=== PATIENT | male | born 1980 | race Caucasian/White ===

== ENCOUNTER 2016-11-02 08:04 | Observation (INO) ==
[2016-11-02] MEDS ORDERED: Ketorolac 60 MG/2 ML VIAL IM ONE (08:27)
--- NOTE | 2016-11-02 08:32 | Emergency Department Note ---
Disposition Clinical Impression: Leg pain, bilateral Disposition: Admitted As Inpatient Condition: Fair Time of Disposition: 09:41 Extremity Problem HPI - General Chief complaint: ED Extremity Problem,Nontraumatic Stated complaint: bilat leg pain Time Seen by Provider: 11/02/16 08:11 Source: patient Mode of arrival: ambulatory Limitations: no limitations Nursing Notes Reviewed: Yes Vital Signs Reviewed: Yes - History of Present Illness HPI Narrative: Patient presents to the emergency Department complaining of atraumatic bilateral leg pain. The pain extends from his bilateral hips distally. He notes pain mostly in his bilateral knees and left ankle. No back pain. No fevers. No radicular symptoms. Pain is worse with ambulation and certain positions. He admits to a remote history of IV drug use-last use 4 months ago. He has not taken any analgesics for this other than 3 Vicodin last month which was ineffective. He states he also took some leftover Neurontin which was ineffective. No other acutely swollen joints Pt Subjective Complaint: extremity pain Onset (ago): month(s) Consistency: constant Injury Location: lower extremity Pain Scale: 10 Quality: aching Improves with: other (Position) Worsens with: nothing Associated symptoms: Reports: denies other symptoms - Related Data Home Medications Medication Instructions Recorded Confirmed No Known Home Drugs 11/02/16 11/02/16 Allergies Allergy/AdvReac Type Severity Reaction Status Date / Time No Known Allergies Allergy Verified 11/02/16 09:24 All systems ED: reviewed and negative except as stated. Constitutional: Reports: as per HPI Eyes: Reports: as per HPI ENT ED: Reports: as per HPI Cardiovascular: Reports: as per HPI Respiratory: Reports: as per HPI Gastrointestinal: Reports: as per HPI Genitourinary: Reports: as per HPI Musculoskeletal: Reports: other (Bilateral lower extremity pain) Integumentary: Reports: as per HPI Neurological: Reports: as per HPI Psychiatric: Reports: as per HPI Endocrine: Reports: as per HPI Hematological/Lymphatic: Reports: as per HPI Allergic/Immunologic: Reports: as per HPI Past Medical History - Past Medical History Source: patient Medical history: Reports: no medical history Psychiatric history: Reports: no psych history - Social History Smoking Status: Never smoker Smokeless Tobacco Status: No Alcohol use: Reports: none Drug use: Reports: opiates, other Physical Exam Patient lying supine at the time of my exam. Appears uncomfortable. He was able to ambulate to the treatment area with a painful gait - General Limitations: no limitations General appearance: alert, anxious - Head Head exam: atraumatic - Eye Eye exam: Present: normal appearance - ENT ENT exam: normal exam - Neck Neck exam: Present: normal inspection - Chest Chest inspection: Present: normal inspection, symmetric chest wall rise - Respiratory Respiratory exam: Present: normal lung sounds bilaterally. Absent: respiratory distress - Cardiovascular Cardiovascular exam: Present: regular rate, normal rhythm, normal heart sounds - Abdominal Exam Abdominal exam: Present: soft, Non-Tender. Absent: tenderness - Rectal Exam Rectal exam: Present: deferred - Extremities Exam Extremities exam: Present: normal inspection, full ROM (With subjective pain when he bends at his hips, knees, ankles), tenderness (Diffuse tenderness with palpation of his knees and ankles.), other (No increased tactile warmth, no acutely swollen joints. Range of motion preserved but with discomfort). Absent : pedal edema, joint swelling - Expanded Lower Extremity Exam Hip/Pelvis exam: Present: normal inspection Knee exam: Present: normal inspection Lower leg exam: Present: normal inspection Ankle exam: Present: normal inspection Foot/toe exam: Present: normal inspection Neurovascular/Tendon exam: Absent: pulse deficit, motor deficit, sensory deficit Gait: observed and limited by pain - Back Exam Back exam: Present: normal inspection, full ROM. Absent: tenderness - Neurological Exam Neurological exam: Present: alert, oriented X3, CN II-XII intact - Psychiatric Psychiatric exam: Present: anxious - Skin Skin exam: Present: warm, dry, intact Course Course Narrative: Patient presents to emergency department with bilateral atraumatic lower extremity pain. No back pain or fevers. No SIRS criteria per his triage vital signs. I do not see evidence of any acutely inflamed joints. However, because of his subacute history of IV drug use-last use 4 months ago, I we will check labs with attention to CBC, ESR, CRP. I offered [id number] analgesics and reassessed - Reevaluation(s) Reevaluation #1: Patient resting comfortable at time of reevaluation. I am concerned given the patient's history of IV drug use. His CRP and ESR are both elevated. The patient could be bacteremic. He could have septic arthritis. I have requested admission to medicine service. I will withhold antibiotic therapy pending cultures. accepts Reevaluation #2: Family and elevated bedside. Additional history is obtained and the patient now admits to using IV heroin daily. He was hesitant to be admitted but now agrees to stay Vital Signs Temperature 98.5 F 11/02/16 08:07 Pulse Rate 61 11/02/16 08:07 Respiratory Rate 16 11/02/16 08:07 Blood Pressure 150/93 11/02/16 08:07 O2 Sat by Pulse Oximetry 98 11/02/16 08:07 Temperature 98.5 F 11/02/16 08:07 Pulse Rate 68 11/02/16 08:27 Respiratory Rate 20 11/02/16 08:27 Blood Pressure 137/82 11/02/16 08:27 O2 Sat by Pulse Oximetry 98 11/02/16 08:27 Oxygen Delivery Oxygen Delivery Room Air Extremity Problem, Nontraumati - Lab Data Lab results reviewed: Yes I reviewed the patient's lab results. Result diagrams: 11/02/16 08:47 11/02/16 08:47 Lab Results 11/02/16 11/02/16 11/02/16 Range/Units 08:47 08:47 08:47 WBC 4.1 L (4.3-11.1) K/mcL RBC 4.65 (4.19-5.50) M/mcL Hgb 11.7 L (12.9-16.9) g/dL Hct 37.1 L (37.5-50.1) % MCV 79.8 L (83.0-100.0) fL MCH 25.2 L (28.0-33.3) pg MCHC 31.5 L (31.6-35.5) g/dL RDW 14.8 H (11.5-14.5) % Plt Count 173 (140-400) K/mcL MPV 10.2 (9.4-12.4) fL Immature Gran % 0.2 (0-4) % Seg Neutrophils % 62.4 % Lymphocytes % 22.9 % Monocytes % 10.6 % Eosinophils % 3.4 % Basophils % 0.5 % Neutrophils # 2.5 (1.6-8.9) K/mcL Lymphocytes # 0.9 (0.6-4.6) K/mcL Monocytes # 0.4 (0.0-1.3) K/mcL Eosinophils # 0.1 (0.0-0.6) K/mcL Basophils # 0.0 (0.0-0.2) K/mcL ESR 92 H (0-10) mm/hr Sodium 136 (136-145) mEq/L Potassium 3.4 L (3.5-4.5) mEq/L Chloride 101 (98-109) mEq/L Carbon Dioxide 28 (19-29) mEq/L BUN 13 (8-26) mg/dL Creatinine 0.90 (0.72-1.25) mg/dL Est GFR ( Amer) > 60 (> 60) Est GFR (Non-Af Amer) > 60 (> 60) BUN/Creatinine Ratio 14 (6-26) Glucose 118 H (70-99) mg/dL Calculated Osmolality 283 (280-300) Calcium 8.6 (8.6-10.8) mg/dL C-Reactive Protein 80 H (Less than 5) mg/L
[2016-11-02 08:54] LABS: Basophils % 0.5 %; Eosinophils # 0.1 K/mcL (0.0-0.6); Eosinophils % 3.4 %; Hematocrit 37.1 % (37.5-50.1); Hemoglobin 11.7 g/dL (12.9-16.9); Immature Granulocytes % 0.2 % (0-4); Lymphocytes # 0.9 K/mcL (0.6-4.6); Lymphocytes % 22.9 %; Mean Corpuscular HGB Conc 31.5 g/dL (31.6-35.5); Mean Corpuscular Hemoglobin 25.2 pg (28.0-33.3); Mean Corpuscular Volume 79.8 fL (83.0-100.0); Mean Platelet Volume 10.2 fL (9.4-12.4); Monocytes # 0.4 K/mcL (0.0-1.3); Monocytes % 10.6 %; Neutrophils # 2.5 K/mcL (1.6-8.9); Platelet Count 173 K/mcL (140-400); Red Blood Count 4.65 M/mcL (4.19-5.50); Red Cell Distribution Width 14.8 % (11.5-14.5); Segmented Neutrophils % 62.4 %
[2016-11-02 09:05] LABS: BUN/Creatinine Ratio 14 (6-26); Blood Urea Nitrogen 13 mg/dL (8-26); Calcium 8.6 mg/dL (8.6-10.8); Carbon Dioxide 28 mEq/L (19-29); Chloride 101 mEq/L (98-109); Glucose 118 mg/dL (70-99); Osmolality,Calculated 283 (280-300); Potassium 3.4 mEq/L (3.5-4.5); Sodium 136 mEq/L (136-145); eGFR For African Americans > 60 (> 60); eGFR For Non-African Americans > 60 (> 60)
[2016-11-02 09:21] LABS: C-Reactive Protein 80 mg/L (Less than 5)
[2016-11-02] MEDS ORDERED: Naloxone 0.4 MG/ML INJ IVP PRN (10:03)
[2016-11-02] MEDS ORDERED: Acetaminophen 325 MG TABLET PO PRN (10:03)
[2016-11-02] MEDS ORDERED: Ondansetron 4 MG/2 ML VIAL IVP PRN (10:03)
[2016-11-02] MEDS ORDERED: Ketorolac 30 MG/ML VIAL IVP PRN ×2 (10:03→20:30)
--- NOTE | 2016-11-02 10:18 | Internal Med History&Physical ---
Date of Encounter: 11/02/16 Time of Encounter: 09:30 Assessment and Plan (1) Leg pain, bilateral Current visit: Yes Status: Acute Etiology is undetermined. On exam, patient has no joint swelling, redness. ROM wnl. - We will place CT legs, US legs to rule out arthritis or DVT. - No signs of infection so far. - We will give him pain medication. Avoid opioid considering patient has a history of IV drug use. - We will check JO and RF considering patient has elevated ESR and recent body weight loss. - We will check urine gonorrhea DNA (2) Hx of intravenous drug use, in remission Current visit: Yes Status: Acute Patient has history of IV drug use. Per patient, last use of heroin was a couple months ago. Patient was on suboxone previously but stopped now. - We will place social work consult. May need detox referral upon discharge. - Valium by mouth for anxiety and to prevent withdrawal. (3) DVT prophylaxis Current visit: Yes Status: Acute Heparin subcutaneously (4) Hypokalemia Current visit: Yes Status: Acute Will give potassium supplement. Internal Medicine - H&P: HPI Chief complaint: Leg pain bilaterally Admitted From: Home Plans for Post Hospital Care: Home History of present illness: Mr. Bullock is a 36 year old male with history of IV drug abuse of heroin presents to the emergency room for bilateral leg pain for 3 days. Patient denies any trauma or injury. Pain is a sharp, located both knees and ankles. Pain is 10 out of 10, constant. Patient denies fever. As per ER physician, patient walked in to the emergency room. Patient complaint of mild nausea. He said he lost 30 Lb over last 5 months, denies night sweating. In ER he was found elevated ESR and CRP, he was admitted to r/o bacteria, or other inflammatory conditions. I have discussed with CODE STATUS with patient. He is full code. Past Med Surg Social Fam HX - Past Medical History Medical history: no medical history Psychiatric history: no psych history - Social History Smoking Status: Never smoker Smokeless Tobacco Status: No Alcohol use: none Drug use: opiates, other Internal Medicine - H&P: Meds No Known Home Drugs 11/02/16 [History] No Known Allergies Allergy (Verified 11/02/16 09:24) All Systems PM: A 10-system review of systems was performed and is negative for pertinent findings except as documented above in the HPI. - Constitutional Vitals: Temp Pulse Resp BP Pulse Ox 98.5 F 68 20 137/82 98 11/02/16 08:07 11/02/16 08:27 11/02/16 08:27 11/02/16 08:27 11/02/16 08:27 General appearance: Present: A&O X 3, severe distress, answers questions appropriately - Head Head exam: Present: atraumatic, normocephalic - Eye Eye exam: Present: PERRL, conjuntiva pink, sclera anicteric Pupils: Present: PERRL - Neck Neck exam general surgery: Present: supple, trachea midline. Absent: lymphadenopathy - Respiratory Respiratory exam: Present: CTAB. Absent: accessory muscle use, rales, rhonchi, wheezes - Cardiovascular Cardiovascular exam: Present: RRR, +S1, +S2. Absent: diastolic murmur, gallop, rubs, systolic murmur - GI/Abdominal GI/Abdominal exam: Present: normal bowel sounds, soft, no peritoneal signs. Absent: distended, tenderness - Extremities Exam Extremities exam: Present: tenderness (Tenderness all over legs bilaterally), warm, radial pulses palpable and symmetrical. Absent: calf tenderness, cyanotic , pedal edema - Neurological Exam Neurological exam: Present: CN II-XII intact, oriented X3, no focal deficits. Absent: pronater drift, facial droop, speech deficit - Skin Skin exam: Present: dry, intact Internal Med - H&P Results - Labs CBC & Chem 7: 11/02/16 08:47 11/02/16 08:47
[2016-11-02] MEDS ORDERED: diazePAM 10 MG TABLET PO SCH (10:30)
[2016-11-02 11:10] VITALS: BP 128/74
--- NOTE | 2016-11-02 13:57 | Discharge Summary ---
Date of Encounter: 11/02/16 Time of Encounter: 13:35 - Discharge Diagnosis (1) Leg pain, bilateral Priority: Primary Status: Acute (2) Hx of intravenous drug use, in remission Priority: Secondary Status: Acute (3) DVT prophylaxis Priority: Secondary Status: Acute (4) Hypokalemia Priority: Secondary Status: Acute - Discharge Medications Home Medications: No Known Home Drugs 11/02/16 [History] Allergies/Adverse Reactions: 3 Allergy/AdvReac Type Severity Reaction Status Date / Time No Known Allergies Allergy Verified 11/02/16 09:24 Procedures/tests Complete & Pending: Procedures Performed prior 72 hours Category Date Time Status Venous Doppler [EV venous imaging LE BI] Stat Y 11/02/16 10:09 Ordered Date of admission: 11/02/16 09:43 Primary care physician: PCP NONE Consults: 11/02/16 10:05 Consult to Platform [employer] [CONS] Routine Reason for SW Consult: Hx of IVDU Discharging clinician: Eitan Corado Anticipated date of discharge: 11/02/16 - Patient Status Disposition: Left Against Medical Advice Condition: Fair - Discharge Instructions Follow Up With: NONE,PCP [Primary Care Provider] - Hospital course: Mr. Bullock is a 36 year old male admitted for b/l leg pain. Pt has elevated ESR so ER physician has concern for bacteremia b/o hx of IVDU. Pt was given pain medication and blood culture was drawn in ER. He was placed workups for leg pain. I was called by RN that pt wants to sign AMA. I went to see him bu he has signed AMA with RN already and left hospital. He is mentally clear as I examined him in ER. He walked out without difficulty per RN although he was admitted as b/l leg pain. - Time Spent with Patient Total time spent providing and/or coordinating discharge services: 15 min Less than 30 minutes - Constitutional Vitals: Temp Pulse Resp BP Pulse Ox 98.0 F 50 14 128/74 96 11/02/16 11:07 11/02/16 11:07 11/02/16 11:07 11/02/16 11:07 11/02/16 11:07 General appearance: Present: A&O X 3, severe distress, answers questions appropriately
[2016-11-02] MEDS ORDERED: *HR* Heparin 5,000 UNIT/ML VIAL SQ SCH (18:00)
== END 2016-11-02 13:54 | disposition left against medical advice (07) ==
LOC: 3BNU 08:04 → EMEROO 08:04 → 3BNU 10:54
PROVIDERS: ADMIT Internal Medicine; ATTEND Registered Nurse